=== PATIENT | male | born 1995 | race Caucasian/White ===

== ENCOUNTER 2018-01-23 10:17 | Emergency (ER) | payer BC ==
[~2018-01-23] VITALS: Ht 180.3 cm; Wt 84.1 kg
[2018-01-23 10:22] VITALS: BP 146/81; PULSE 76; TEMP 98.5
[2018-01-23 10:56] LABS: BASO % 0.2 % (0.0-2.0); EOS % 0.3 % (0-4.0); GRAN # 9.3 (1.4-6.5); GRAN % 83.8 % (42.2-75.2); HEMATOCRIT 44.7 % (42.0-52.0); HEMOGLOBIN 15.8 g/dl (13.5-18.0); LYMPH # 1.2 (1.2-3.4); LYMPH % 10.5 % (20.0-51.0); MEAN CELL VOLUME 84 fl (80.0-100.0); MEAN CORPUSCULAR HEMOGLOBIN 30 pg (27.0-31.0); MEAN CORPUSCULAR HGB CONC 35 g/dl (33.0-37.0); MEAN PLATELET VOLUME 10.2 fl (7.4-10.4); MONO # 0.5 (0.1-0.6); MONO % 4.9 % (1.7-9.3); PLATELET COUNT 226 K/mm3 (130-400); REDCELL DISTRIBUTION WIDTH-CV 12.5 % (11.5-14.5)
[2018-01-23 11:07] LABS: ALBUMIN 4.5 gm/dL (3.5-5.0); BILIRUBIN,TOTAL 0.6 mg/dL (0.0-1.0); CALCIUM 9.7 mg/dL (8.4-10.2); CREATININE, serum 0.93 mg/dL (0.66-1.25); POTASSIUM 4.1 mmol/L (3.4-5.0)
[2018-01-23 11:40] LABS: COLLECTION METHOD CLEAN CATCH
[2018-01-23 11:46] LABS: MUCOUS Present /lpf; PH 7 (5-8); SQUAMOUS EPITHELIAL None Seen /hpf; URINE APPEARANCE Clear; URINE BACTERIA None Seen /hpf; URINE BILIRUBIN Negative (NEGATIVE); URINE BLOOD Negative (NEGATIVE); URINE COLOR Yellow; URINE GLUCOSE Negative (NEGATIVE); URINE KETONE Negative (NEGATIVE); URINE LEUKOCYTE ESTERASE Negative (NEGATIVE); URINE NITRATE Negative (NEGATIVE); URINE PROTEIN(semi-quant) Negative (NEGATIVE); URINE RBC 0-2 /hpf; URINE UROBILINOGEN Negative (NEGATIVE)
[2018-01-23] MEDS ORDERED: CIPRO 500MG TA500 MG PO (14:12)
[2018-01-23] MEDS ORDERED: FLAGYL500 MG PO (14:12)
== END 2018-01-23 14:25 | disposition home or self-care (01) ==
LOC: COL.ER 10:17
PROVIDERS: Physician Assistant Medical
DX: K52.9 Noninfective gastroenteritis and colitis, unspecified (principal)
CPT/HCPCS: J1885; J2405; Q9967